=== PATIENT | female | born 1960 | race Caucasian/White ===

== ENCOUNTER 2017-12-04 14:16 | Outpatient (CLI) | payer BC ==
--- NOTE | 2017-12-08 10:15 | MMO ---
SCREENING MAMMOGRAPH: Date: 12-04-17 Comparison: 08-09-16, 07-28-15, 07-05-14 History: Screening mammography. FINDINGS: This study is interpreted with the assistance of computer aided detection. The breast parenchyma is primarily fatty replaced. Benign calcifications are seen bilaterally. There is no dominant mass or architectural distortion. No concerning microcalcifications are noted. IMPRESSION: BIRADS 2 - benign findings. Recommend annual screening mammography. POS: JENNIFER
== END 2017-12-04 14:17 | disposition home or self-care (01) ==
LOC: SCSMAMMO 14:16
PROVIDERS: ATTEND Family Medicine
DX: Z12.31 Encounter for screening mammogram for malignant neoplasm of breast (principal)
CPT/HCPCS: 77067

== ENCOUNTER 2018-11-26 09:30 | Outpatient (CLI) | payer BC ==
--- NOTE | 2018-11-26 14:28 | NM ---
THREE PHASE BONE SCAN OF THE LEFT AND RIGHT KNEE: HISTORY: Status post right knee replacement in March of 2018. Pain, swelling, tenderness, and erythema. COMPARISON: None. TECHNIQUE: The patient was administered 32.60 mCi of Technetium 99m MDP intravenously. Three-phase imaging of t he knees and whole body delayed imaging is performed. FINDINGS: Whole body delayed images demonstrate expected distribution of radiotracer. On the flow images, there is asymmetric increased radiotracer in the periphery of the right knee arth roplasty. Under blood pool and delayed images, there is associated increased uptake. There is incre ased uptake in the left knee on the blood pool and delayed images. IMPRESSION: 1. Increased 3-phase uptake around the right knee, worrisome for infection or loosening. 2. Degenerative change involving the left knee. Additional degenerative change is noted in the shou lders, feet, and ankles bilaterally. POS: JENNIFER
== END 2018-11-26 09:31 | disposition home or self-care (01) ==
LOC: NM 09:30
PROVIDERS: ATTEND Specialist
DX: T84.84XA Pain due to internal orthopedic prosthetic devices, implants and grafts, initial encounter (principal); M17.12 Unilateral primary osteoarthritis, left knee; M19.012 Primary osteoarthritis, left shoulder; M19.011 Primary osteoarthritis, right shoulder; M19.072 Primary osteoarthritis, left ankle and foot; M19.071 Primary osteoarthritis, right ankle and foot; Z96.659 Presence of unspecified artificial knee joint
CPT/HCPCS: 78315; A9503

== ENCOUNTER 2018-12-07 08:42 | Outpatient (CLI) | payer BC ==
--- NOTE | 2018-12-07 10:34 | BD ---
DEXA BONE DENSITY EXAM: HISTORY: A 58-year-old postmenopausal female for screening. COMPARISON: None. FINDINGS: Lumbar Spine: BMD (g/cm2) L1 0.796 T-Score: -1.8 L2 0.774 T-Score: -2.3 L3 0.855 T-Score: -2.1 L4 0.941 T-Score: -1.1 L1-L4 0.848 T-Score: -1.8 Femoral Neck: 0.707 T-Score: -1.3 Total Femur: 0.943 T-Score: 0.0 Impression: Osteopenia. This patient has a 10-year WHO fracture risk for a major osteoporotic fracture of 7.3% a nd of a hip fracture 0.5%. POS: JENNIFER
== END 2018-12-07 08:43 | disposition home or self-care (01) ==
LOC: BICMAMMO 08:42
PROVIDERS: ATTEND Family Medicine
DX: Z12.31 Encounter for screening mammogram for malignant neoplasm of breast (principal); Z13.820 Encounter for screening for osteoporosis; M85.89 Other specified disorders of bone density and structure, multiple sites; R92.1 Mammographic calcification found on diagnostic imaging of breast; Z80.3 Family history of malignant neoplasm of breast
CPT/HCPCS: 77063; 77067; 77080

== ENCOUNTER 2019-02-09 11:18 | Outpatient (CLI) | payer BC ==
--- NOTE | 2019-02-09 13:32 | RAD ---
PA AND LATERAL CHEST: Date: 02/09/19 HISTORY: Preop. FINDINGS: Heart size appears slightly enlarged. Aorta is tortuous. The lungs show some chronic change. There ar e arthritic changes of the spine. IMPRESSION: Mild cardiomegaly. No active intrathoracic disease. POS: [facility]
== END 2019-02-09 11:19 | disposition home or self-care (01) ==
LOC: BICRAD 11:18
PROVIDERS: ATTEND Family Medicine
DX: Z01.818 Encounter for other preprocedural examination (principal); I51.7 Cardiomegaly
CPT/HCPCS: 36415; 71046; 80053; 83036; 84443; 84466; 85025; 86803

== ENCOUNTER 2019-12-08 07:36 | Outpatient (CLI) | payer BC ==
--- NOTE | 2019-12-08 09:25 | MMO ---
Bilateral MAMMO Bilat Screen [facility]. CLINICAL HISTORY: Patient is 59 years old and is seen for screening. The patient has no family history of breast cancer. The patient has no personal history of cancer. VIEWS: The views performed were: bilateral craniocaudal with tomosynthesis and bilateral mediolateral oblique with tomosynthesis. FILMS COMPARED: The present examination has been compared to prior imaging studies performed at [facility] on 12/04/2017, and at [facility] on 08/14/2016, 11/26/2016 and 12/07/2018. This study has been interpreted with the assistance of computer-aided detection. MAMMOGRAM FINDINGS: There are scattered fibroglandular densities. There are stable benign appearing calcifications seen in both breasts. There are no suspicious masses, suspicious calcifications, or new areas of architectural distortion. IMPRESSION: THERE IS NO MAMMOGRAPHIC EVIDENCE OF MALIGNANCY. A ROUTINE FOLLOW-UP MAMMOGRAM IN 1 YEAR IS RECOMMENDED. THE RESULTS OF THIS EXAM WERE SENT TO THE PATIENT. ACR BI-RADS Category 2 - Benign finding MAMMOGRAPHY NOTE: 1. A negative mammogram report should not delay a biopsy if a dominant of clinically suspicious mass is present. 2. Approximately 10% to 15% of breast cancers are not detected by mammography. 3. Adenosis and dense breasts may obscure an underlying neoplasm. Reported by: ISABELA JIMENEZ MD Electonically Signed: [id number]
== END 2019-12-08 07:37 | disposition home or self-care (01) ==
LOC: BICMAMMO 07:36
PROVIDERS: ATTEND Family Medicine
DX: Z12.31 Encounter for screening mammogram for malignant neoplasm of breast (principal)
CPT/HCPCS: 77063; 77067

== ENCOUNTER 2020-12-14 10:48 | Outpatient (CLI) | payer BC ==
--- NOTE | 2020-12-14 13:00 | MMO ---
Bilateral MAMMO Bilat Screen [facility]. CLINICAL HISTORY: Patient is 60 years old and is seen for screening. The patient has no family history of breast cancer. The patient has no personal history of cancer. VIEWS: The views performed were: bilateral craniocaudal with tomosynthesis and bilateral mediolateral oblique with tomosynthesis. FILMS COMPARED: The present examination has been compared to prior imaging studies performed at [facility] on 12/04/2017, and at [facility] on 11/26/2016, 12/07/2018 and 12/08/2019. This study has been interpreted with the assistance of computer-aided detection. MAMMOGRAM FINDINGS: The breasts are almost entirely fat. There are no suspicious masses, suspicious calcifications, or new areas of architectural distortion. IMPRESSION: THERE IS NO MAMMOGRAPHIC EVIDENCE OF MALIGNANCY. A ROUTINE FOLLOW-UP MAMMOGRAM IN 1 YEAR IS RECOMMENDED. THE RESULTS OF THIS EXAM WERE SENT TO THE PATIENT. ACR BI-RADS Category 1 - Negative MAMMOGRAPHY NOTE: 1. A negative mammogram report should not delay a biopsy if a dominant of clinically suspicious mass is present. 2. Approximately 10% to 15% of breast cancers are not detected by mammography. 3. Adenosis and dense breasts may obscure an underlying neoplasm. Reported by: NICOLA COVINGTON MD Electonically Signed: [id number]
== END 2020-12-14 10:49 | disposition home or self-care (01) ==
LOC: BICMAMMO 10:48
PROVIDERS: ATTEND Family Medicine
DX: Z12.31 Encounter for screening mammogram for malignant neoplasm of breast (principal)
CPT/HCPCS: 77063; 77067

== ENCOUNTER 2021-12-21 08:04 | Outpatient (CLI) | payer BC | END 2021-12-21 08:05 | disposition home or self-care (01) | LOC: BICMAMMO 08:04 | PROVIDERS: ATTEND Family Medicine | DX: Z12.31 Encounter for screening mammogram for malignant neoplasm of breast (principal); Z80.3 Family history of malignant neoplasm of breast | CPT/HCPCS: 77063; 77067 ==

== ENCOUNTER 2025-08-09 13:18 | Outpatient (CLI) | payer OTHER | END 2025-08-09 13:19 | disposition home or self-care (01) | LOC: SCSRAD 13:18 | PROVIDERS: ATTEND Student in an Organized Health Care Education/Training Program | DX: U07.1 COVID-19 (principal) | CPT/HCPCS: 71046 ==